=== PATIENT | male | born 1995 | race Caucasian/White ===

== ENCOUNTER 2018-06-26 22:24 | Emergency (ER) | payer BC ==
[~2018-06-26] VITALS: Ht 175.3 cm; Wt 86.4 kg
[2018-06-26 22:29] VITALS: TEMP 99.8
[2018-06-26] MEDS ORDERED: PREDNISONE20 MG PO (23:09)
[2018-06-26] MEDS ORDERED: ZITHROMAX Z PA250 MG PO (23:09)
[2018-06-26 23:12] LABS: HEMATOCRIT 39.8 % (42.0-52.0); HEMOGLOBIN 13.9 g/dl (13.5-18.0); MEAN CELL VOLUME 87 fl (80.0-100.0); MEAN CORPUSCULAR HEMOGLOBIN 31 pg (27.0-31.0); MEAN CORPUSCULAR HGB CONC 35 g/dl (33.0-37.0); MEAN PLATELET VOLUME 9.7 fl (7.4-10.4); PLATELET COUNT 191 K/mm3 (130-400); RED BLOOD COUNT 4.56 M/mm3 (4.20-5.60); REDCELL DISTRIBUTION WIDTH-CV 12.5 % (11.5-14.5)
[2018-06-26 23:28] LABS: ALBUMIN 4.1 gm/dL (3.5-5.0); BILIRUBIN,TOTAL 0.7 mg/dL (0.0-1.0); CALCIUM 9.2 mg/dL (8.4-10.2); CREATININE, serum 0.81 mg/dL (0.66-1.25); POTASSIUM 3.4 mmol/L (3.4-5.0); TOTAL PROTEIN 7.3 gm/dL (6.4-8.2)
[2018-06-26] MEDS ORDERED: PHENERGAN 25 TA25 MG PO (23:38)
[2018-06-26 23:43] VITALS: BP 124/83; PULSE 96
[2018-06-26 23:43] LABS: BAND 10 % (0-10); METAMYELOCYTE 1 % (0-0); NEUTROPHILS 19 % (42.0-75.2)
[2018-06-26 23:44] LABS: LYMPHOCYTE 70 % (20.0-51.0); PLATELET ESTIMATE NORMAL (NORMAL)
[2018-06-27 07:39] LABS: PATHOLOGY DIFF REVIEW OK
== END 2018-06-26 23:50 | disposition home or self-care (01) ==
LOC: COL.ER 22:24
PROVIDERS: Emergency Medicine
DX: J40 Bronchitis, not specified as acute or chronic (principal); J02.9 Acute pharyngitis, unspecified
CPT/HCPCS: C9113; J1885; J2405; J7030